=== PATIENT | male | born 1985 | race Hispanic/Latino ===

== ENCOUNTER → 2017-08-02 | Outpatient (CLI) | payer OTHER ==
--- NOTE | 2017-08-02 17:33 | Diagnostic Imaging Report ---
PROCEDURE: Frontal and lateral views of the chest. COMPARISON: None. INDICATIONS: CHRONIC COUGH, CHEST PAINS FINDINGS: Lines/tubes: None. Lungs: The lungs are well inflated. Minimal left basilar/retrocardiac opacification. Pleura: There is no pleural effusion or pneumothorax. Heart and mediastinum: The heart and the mediastinum are normal. Bones: No acute bony abnormality. IMPRESSION: Minimal left basilar/retrocardiac opacification, could represent subsegmental atelectasis or developing pneumonia in the appropriate clinical setting. Dictated by: Denis Gunter M.D. on 08/02/2017 at 17:34 Electronically approved by: Denis Gunter M.D. on 08/02/2017 at 17:34
== END ==
LOC: RAD 16:54
PROVIDERS: ATTEND Family Medicine
DX: R05 Cough (principal)
CPT/HCPCS: 71046